=== PATIENT | male | born 1980 | race Caucasian/White ===

== ENCOUNTER 2024-04-06 13:40 | Emergency (ER) | payer BC ==
[2024-04-06] MEDS: Ibuprofen 200 MG Tab PO PRN (14:06)
[2024-04-06] MEDS: Acetaminophen/HYDROcodone 325-5 MG Tab PO ONE (14:07)
== END 2024-04-06 14:30 | disposition home or self-care (01) ==
LOC: VM.ED 13:40
DX: S86.001A Unspecified injury of right Achilles tendon, initial encounter (principal); W19.XXXA Unspecified fall, initial encounter
CPT/HCPCS: 99283; A9270-GY